=== PATIENT | male | born 1965 | race Caucasian/White ===

== ENCOUNTER 2017-02-10 17:55 | Inpatient (IN) | payer MEDICARE, OTHER ==
--- NOTE | ~2017-02-10 | EEG ---
Electroencephalogram [place] [place]. [address] NAME: REN MUNOZ : 69 STATUS : DIS IN PAT#: [id number] AGE: 51 ADM/REG DATE : 02/10/17 MR#: [id number] REPORT SERV DATE: 02/12/17 DICTATED BY: KAREN SHELTON DATE: 02/12/17 REPORT STATUS : Draft TRANSCRIBED BY: MODAnderson DATE: 02/12/17 EEG NUMBER: [id number]. INTERPRETING PHYSICIAN: Karen Shelton MD REASON FOR THE EEG: Encephalopathy and history of seizures. FINDINGS: 23 surface electrodes, 10-20 international placement was used. The patient was noted to be awake, drowsy, and asleep throughout the study. The background activity consisted of moderate to low voltage, well-organized alpha range activity of 10-11 cycles per second located in the posterior head regions. This activity attenuated well with the eye opening maneuvers. During drowsiness and light sleep, appropriate amount of increase of slower frequencies was observed. The patient was noted to snore throughout the study. Photic stimulation did not bring out additional changes or abnormalities. The patient's monitoring and evaluation advisor showed sinus rhythm, rate of approximately 72 beats per minute. No significant asymmetry of cerebral activity was noted. No paroxysmal epileptiform activity was seen during the study. IMPRESSION: THIS IS A NORMAL AWAKE, DROWSY, AND ASLEEP EEG. CLINICAL CORRELATION IS RECOMMENDED. RONNY/LISSA Karen Shelton MD / [id number] CC: Ashlyn Cook M.D.
--- NOTE | ~2017-02-10 | CN ---
Consultation Report [facility] [address] [place]. [address] NAME: REN MUNOZ : 69 STATUS : ADM IN PAT#: [id number] AGE: 51 ADM/REG DATE : 02/10/17 MR#: [id number] REPORT SERV DATE: 02/11/17 DICTATED BY: YESSICA ROSADO DATE: 02/11/17 REPORT STATUS : Draft TRANSCRIBED BY: MODL DATE: 02/11/17 NEUROLOGY CONSULTATION DATE OF CONSULTATION: 02/11/2017 REASON FOR CONSULTATION: Seizure and acute encephalopathy. HOSPITALIST: Dr. Singh Bay. HISTORY OF PRESENT ILLNESS: The patient is a 51-year-old male, who was complaining of insomnia, consequently he was started on Elavil two weeks ago. A week ago, the patient started to become confused, lethargic, and dysarthric. His family thought he was having another stroke, so they took him to [facility]. He was admitted to the hospital. Imaging, lab work, and an EEG was done. His studies came back negative for stroke or seizure activity. He was sent home. He had a recent toothache and was placed on antibiotics. The patient mentions that he has had seizures since he was approximately [age] years old. He has a strong family history for seizure. His brother, sister, and mother all have seizure activity. He states that, he has tonic-clonic seizure and has been on Keppra 2000 mg a day, which seemed to control his seizure activity. PAST MEDICAL HISTORY: Chronic systolic heart failure with an EF of 30%, atrial fibrillation currently on Pradaxa, tonic-clonic seizure, diabetes mellitus, hypertension, hyperlipidemia, bipolar disorder, anxiety, B12 and folate deficiency, history of stroke in the right basal ganglia region, and tobacco abuse. PAST SURGICAL HISTORY: Lumbar spine surgery x2 with implanted bone growth stimulator, cardiac ablation, and recurrent rectal abscess. HOME MEDICATIONS: Elavil 50 mg at bedtime, Lipitor 10 mg daily, Coreg 3.125 mg b.i.d., Celexa 40 mg daily, Pradaxa 150 mg b.i.d., Neurontin 600 mg t.i.d., Advil 600 mg b.i.d. p.r.n., NovoLog insulin 70/30 15 units b.i.d., Keppra 1000 mg b.i.d., Zestril 20 mg daily, metformin 1000 mg b.i.d., Micro-K 10 mEq daily, Aldactone 25 mg b.i.d., and Demadex 10 mg daily. ALLERGIES: NONE. SOCIAL HISTORY: The patient is . He has two children. He is disabled. He is a smoker. Occasionally, he will drink alcohol and denies any use of illicit drugs. FAMILY HISTORY: His mother is alive. She has seizure. There is no history on his father. He has a brother and sister, who also has seizure activity. Consultation Report [id number] [place]. [address] NAME: REN MUNOZ : 69 STATUS : ADM IN [facility]#: [id number] AGE: 51 ADM/REG DATE : 02/10/17 MR#: [id number] REPORT SERV DATE: 02/11/17 DICTATED BY: YESSICA ROSADO DATE: 02/11/17 REPORT STATUS : Draft TRANSCRIBED BY: LISSA DATE: 02/11/17 REVIEW OF SYSTEMS: For pertinent positives, please refer to HPI. PHYSICAL EXAMINATION: GENERAL: The patient is a 51-year-old male, who stands 6 feet tall and weighs 242 pounds. VITAL SIGNS: He is afebrile. Heart rate 78, respiration rate 19, O2 saturations on 4 L nasal cannula 95%, blood pressure 127/79. NEURO: The patient is awake. He is alert, oriented x4. Communicates appropriately. Pupils are 6 mm. PERRLA. Cranial nerves 2 through 12 are intact. He can move all extremities x4. Rhcjvy-gn-abno and ocfn-qh-ciol, no ataxia. No pronator drift. No dysmetria, tremor, or asterixis. Upper extremity strength is 5/5. Upper DTRs 2+ bilaterally. No reported sensory deficits. Lower extremity strength is 5/5. Patellar reflexes 2+ bilaterally. Downgoing toes. No reported sensory deficits. NECK: No carotid bruits, JVD, or thyromegaly. CHEST: Lung sounds clear. No cough. CARDIAC: Regular rate and rhythm. LABORATORY DATA: CBC is within normal limits. BMP shows a glucose of 241. INR is 1.3. Urinalysis negative for UTI. EEG results are pending. ABGs within normal range. Chest x- ray, borderline cardiomegaly. CT of the brain without contrast shows an old right basal ganglia infarct (lacunar, no acute changes). ASSESSMENT/PLAN: 1. Seizure disorder. The patient has tonic-clonic seizure. His last seizure was six months ago. At this point, the patient will be continued on Keppra at 1000 mg p.o. b.i.d. EEG results are still pending. 2. Acute encephalopathy, most likely due to the new addition of Elavil, which will be discontinued. He will be placed on Ativan 0.5 mg p.o. at bedtime p.r.n. insomnia. 3. History of stroke. The patient will be placed on aspirin 81 mg daily. His Lipitor will be continued. Risk factor reduction will be discussed with the patient (diabetes, hypertension, smoking cessation, hyperlipidemia). Thank you again for including us in consultation. OLE/LISSA Yessica Rosado, [facility] / [id number] CC: Singh Bay M.D. Consultation Report [address] [address] NAME: REN MUNOZ : 69 STATUS : ADM IN [facility]#: [id number] AGE: 51 ADM/REG DATE : 02/10/17 MR#: [id number] REPORT SERV DATE: 02/11/17 DICTATED BY: YESSICA ROSADO DATE: 02/11/17 REPORT STATUS : Draft TRANSCRIBED BY: LISSA DATE: 02/11/17 Christofer Luz M.D.
--- NOTE | ~2017-02-10 | HP ---
History And Physical [place] [id number] [facility] [place]. [address] NAME: REN MUNOZ : 69 STATUS : ADM IN [facility]#: [id number] AGE: 51 ADM/REG DATE : 02/10/17 MR#: [id number] REPORT SERV DATE: 02/11/17 DICTATED BY: MICHELLE WATTS DATE: 02/11/17 REPORT STATUS : Draft TRANSCRIBED BY: MODL DATE: 02/11/17 DATE OF ADMISSION: 02/10/2017 CHIEF COMPLAINT: A 51-year-old male presenting with confusion and hypoxia. HISTORY OF PRESENT ILLNESS: The patient's history was obtained through an interview with the patient, , and sister as well as review of [facility] medical records and medical records obtained from [facility]. About two weeks ago, the patient was started on a new sleeping medication, Elavil, and this may correspond to the patient's worsening condition over the last few weeks. About a week ago or more the patient began to have increasing confusion as his main symptom. He had intermittent slurring of speech, became hypersomnolent at times and even lethargic. He therefore was admitted to [facility] about a week ago, and his family simply states "we thought he was having a stroke or heart attack" because he was so ill. While hospitalized, he had a negative CT scan of the brain, negative EEG, and was thought to be stable enough to return back home. He has only continued to be confused, lethargic with again intermittent slurring of speech, but there has been no hemiparesis, no double vision, no lightheadedness or vertigo. Apparently last week he had some "terrible" chest pain that has since completely resolved, but he had a negative stress test for this. No shortness of breath. No cough. He has had a recent toothache for which he has been on antibiotics, but the toothache has completely resolved now. He has had new onset lower extremity edema recently, but it does not seem to bother him symptomatically otherwise. Apparently his diabetes has been poorly controlled recently with his blood sugars sometimes between the 300s and 500s. REVIEW OF SYSTEMS: Otherwise a 14-point review of systems was obtained and was negative. PAST MEDICAL HISTORY: 1. Systolic congestive heart failure. Ejection fraction 30% measured in January 2016. 2. Atrial fibrillation, on Pradaxa status post cardiac ablation. 3. Seizure disorder. His last seizure was about six months ago. He is on Keppra. 4. Diabetes. 5. Hypertension. 6. Elevated cholesterol. 7. Bipolar disorder with anxiety. 8. B12 and folate deficiency. History And Physical [place] [place]. [address] NAME: REN MUNOZ : 69 STATUS : ADM IN [facility]#: [id number] AGE: 51 ADM/REG DATE : 02/10/17 MR#: [id number] REPORT SERV DATE: 02/11/17 DICTATED BY: MICHELLE WATTS DATE: 02/11/17 REPORT STATUS : Draft TRANSCRIBED BY: LISSA DATE: 02/11/17 9. Right basal ganglia lacunar stroke by CT scan. PAST SURGICAL HISTORY: 1. Lumbar spine surgery x2. 2. Cardiac ablation. 3. Recurrent rectal abscesses. ALLERGIES: NO KNOWN DRUG ALLERGIES. SOCIAL HISTORY: The patient is a smoker. Drinks alcohol socially. He is . Has a 13 year-old son and 32-year-old daughter. Lives in [place], [place]. He is disabled. FAMILY HISTORY: Brother, mother, and sisters with seizure disorder. A strong family history of cancer, diabetes, and heart disease as well. CURRENT MEDICATIONS: 1. Elavil 50 mg p.o. daily. 2. Lipitor 10 mg p.o. daily. 3. Coreg 3.125 mg p.o. b.i.d. 4. Celexa 40 mg p.o. daily. 5. Pradaxa 150 mg p.o. b.i.d. 6. Neurontin 600 mg p.o. t.i.d. 7. Advil p.r.n. 8. Novolin 70/30, 15 units subcutaneous twice a day. 9. Keppra 1000 mg p.o. b.i.d. 10.Lisinopril 20 mg p.o. daily. 11.Metformin 1000 mg p.o. b.i.d. 12.Potassium 10 mEq p.o. daily. 13.Spironolactone 25 mg p.o. b.i.d. 14.Demadex 10 mg p.o. daily. PHYSICAL EXAMINATION: VITAL SIGNS: Temperature 97.5, pulse 92, blood pressure 112/76, respiratory rate 12, and O2 saturation 80% on room air, 95% on 4 L nasal cannula. GENERAL: A lethargic ill-appearing male, but in no evidence of acute distress. No respiratory distress. HEENT: Pupils equal, round, and reactive to light. No conjunctival pallor. No scleral icterus. Nares are patent. Oropharynx is clear of obstruction. Moist mucous membranes. NECK: Trachea midline. No thyromegaly. LYMPH: No cervical lymphadenopathy. No supraclavicular lymphadenopathy. RESPIRATORY: The patient has a shallow respiratory effort. No wheezes. No rales. No rhonchi. A nonlabored respiratory effort. CARDIOVASCULAR: Regular rate and rhythm. No murmurs, rubs, or gallops. The patient does have deeply pitting "doughy" lower extremity edema that is symmetrical. ABDOMEN: Soft, nontender, and nondistended. Normal bowel sounds auscultated throughout. No hepatosplenomegaly. DERMATOLOGICAL: Warm and dry extremities. No pallor. No cyanosis. History And Physical [address] [address] NAME: REN MUNOZ : 69 STATUS : ADM IN [facility]#: [id number] AGE: 51 ADM/REG DATE : 02/10/17 MR#: [id number] REPORT SERV DATE: 02/11/17 DICTATED BY: MICHELLE WATTS DATE: 02/11/17 REPORT STATUS : Draft TRANSCRIBED BY: LISSA DATE: 02/11/17 PSYCHIATRIC: Normal affect. Good mood. Alert and oriented x3. He is lethargic, but easily arousable. LABORATORY DATA: White blood cell count 8.4, hemoglobin 12, hematocrit 36, and platelets 414. Sodium 134, potassium 4.5, chloride 98, bicarb 29, BUN 15, creatinine 1.19, and glucose 230. Brain natriuretic peptide 33. Troponin negative. Lactic acid 0.9. Urinalysis negative for infection. ABG demonstrates pH 7.32, a PaCO2 of 53, a PaO2 of 62, and a bicarb of 27. STUDIES: 1. Chest x-ray by my own evaluation shows chronic interstitial lung disease changes, but no acute abnormality. 2. EKG by my own evaluation shows sinus rhythm, no major abnormalities. 3. CT scan of the brain shows a chronic appearing right basal ganglia lacunar stroke, but no acute abnormality. ASSESSMENT AND PLAN: 1. Hypoxic and hypercapnic respiratory failure. Suspect over-sedation from new prescription of Elavil with concomitant obstructive sleep apnea. We will place on nightly BiPAP for now and follow ABG. Negative brain natriuretic peptide. No wheezes. 2. Encephalopathy. Provide supportive care of respiratory status. Follow ABG. Hold new medication, Elavil. Check an MRI of the brain as the patient has previously undiagnosed "old" stroke ? 3. Seizure disorder. Recheck an EEG. Consult neurologist, Dr. Alen Fraser. 4. Uncontrolled diabetes. Increased Novolin 70/30, start aggressive sliding scale insulin. Obtain a nurses educator consult. 5. Lower extremity edema. Negative brain natriuretic peptide. Check an albumin level. Check a venous Doppler ultrasound of lower extremities. Continue Pradaxa. KPL/MODL Michelle Watts M.D. / [id number] CC: Ashlyn Cook M.D.
--- NOTE | ~2017-02-10 | DS ---
Discharge Summary [facility] [address] [place] [place]. [address] NAME: REN MUNOZ : 69 STATUS : DIS IN PAT#: [id number] AGE: 51 ADM/REG DATE : 02/10/17 MR#: [id number] REPORT SERV DATE: 02/13/17 DICTATED BY: ANNE-MARIE PONCE DATE: 02/12/17 REPORT STATUS : Draft TRANSCRIBED BY: MODL DATE: 02/12/17 ADMISSION DATE: 02/10/2017 DISCHARGE DATE: 02/12/2017 This is a 51-year-old male who comes in for confusion. FINAL DIAGNOSES: 1. Acute hypoxic hypercapnic respiratory failure, resolved. 2. Obstructive sleep apnea. 3. Acute encephalopathy, likely secondary to Elavil. 4. History of right basal ganglia cerebrovascular accident. 5. Seizure disorder. 6. Uncontrolled diabetes, improved. 7. Chronic systolic congestive heart failure with ejection fraction of 30%. 8. Hypertension. 9. Atrial fibrillation with history of ablation. 10.Bipolar and anxiety. 11.Tobacco abuse. 12.Status post hyponatremia. DIAGNOSTIC EXAMS: CAT scan of the brain without showing no acute intracranial pathology, 6 mm hypodensity right basal ganglia, caudate nucleus consistent with old lacunar infarct. Chest x-ray, borderline cardiomegaly, no acute cardiopulmonary abnormality. Ultrasound of the lower extremity is negative. Chest x-ray shows increased pulmonary markings, cardiomegaly. HOSPITAL COURSE: Please refer to the H and P done by Dr. Elizondo dated on 02/10/2017. Briefly, this is a 51-year-old male, who comes in with confusion and hypoxia. The patient has a history of diabetes, seizures with the last one about six months ago, chronic systolic congestive heart failure, atrial fibrillation, who was started on Elavil two weeks ago. The patient then having increasing confusion, intermittent slurring of speech. The patient was then brought to [facility] about a week ago and they did a CAT scan, EEG and it was negative and he was sent home. But he continued to be confused, lethargic, with intermittent slurring of speech. The patient was then brought here and the above tests were done. The patient was taken off the Elavil, but because of his acute hypoxic hypercapnic respiratory failure, he was placed on BiPAP. The patient improved, and on discharge, he was saturating 92% on room air. His mental status is back to his normal. There is no slurring of speech and he even goes out of the floor without any problems and come back without any symptoms. The patient was seen by Neuro and it does not seem that the patient had a CVA, so if they agree, we will be discharging the patient with the above diagnosis. He will follow up with his PCP, Dr. Christofer Luz, and I would advise being careful with sedating medications and an outpatient sleep study. He will be going home with the same home medications, which are Lipitor 10 mg a day, Coreg 3.125 mg twice a day, Celexa 40 mg a day, Pradaxa 150 mg twice a day, gabapentin 600 mg three times a day, Keppra 1000 mg twice a day, Novolin 70/30 increased to 30 units twice a day, Zestril 20 mg a day, Aldactone 25 mg twice a day, Demadex Discharge Summary [address] [address] NAME: REN MUNOZ : 69 STATUS : DIS IN PAT#: [id number] AGE: 51 ADM/REG DATE : 02/10/17 MR#: [id number] REPORT SERV DATE: 02/13/17 DICTATED BY: ANNE-MARIE PONCE. DATE: 02/12/17 REPORT STATUS : Draft TRANSCRIBED BY: LISSA DATE: 02/12/17 10 mg a day, metformin 1000 mg twice a day, potassium 10 mEq a day, Advil p.r.n. This was discussed with the patient. TIME SPENT: 35 minutes. JUDIE/LISSA Anne-Marie Ponce M.D. / [id number] CC: Ashlyn Cook M.D.
[2017-02-10 18:29] LABS: BASOPHILS 0.7 %; BASOPHILS ABSOLUTE 0.06 10/3/uL (0.0-0.16); EOSINOPHILS 5.3 %; EOSINOPHILS ABSOLUTE 0.44 10/3/uL (0.0-0.53); ER CBC TAT 0 Hrs 14 Mins; HEMATOCRIT 35.9 % (40.0-51.0); HEMOGLOBIN 12.2 g/dL (13.6-17.8); IMMATURE GRANULOCYTES 0.2 %; IMMATURE GRANULOCYTES ABSOLUTE 0.02 10/3/uL (0.0-0.11); LYMPHOCYTES 34.1 %; LYMPHOCYTES ABSOLUTE 2.85 10/3/uL (0.67-4.30); MEAN CORPUSCULAR HEMOGLOB 30.3 pg (26.0-34.0); MEAN CORPUSCULAR VOLUME 89.3 fL (80-100); MEAN PLATELET VOLUME 9.9 fL (9.2-13.0); MONOCYTES 9.6 %; NEUTROPHILS 50.1 %; PLATELET COUNT 414 10/3/uL (150-400); RBC DISTRIBUTION WIDTH 13.4 % (12.0-16.0); RED CELL COUNT 4.02 10/6/uL (4.7-6.1); WHITE BLOOD CELLS 8.4 10/3/uL (4.5-10.5)
[2017-02-10 18:31] LABS: MANUAL DIFF NO %
[2017-02-10 18:35] LABS: ALLENS TEST Pos; CARBOXYHEMOGLOBIN 4.1 % (0-3); HCO3 (ACTUAL BICARBONATE) 26.9 MEQ/L (23-27); INSTRUMENT SERIAL # 8087; METHEMOGLOBIN 0.1 % (0-3); O2 CONTENT 15.8 VOL% (18-24); OPERATOR ID 14335; PCO2 (CO2 TENSION) 53 MMHG (35-45); PO2 (O2 TENSION) 62 MMHG (79-93); SAMPLE Arterial; pH 7.32 (7.37-7.43)
[2017-02-10 18:47] LABS: A/G RATIO 0.9 (0.7-1.9); ALBUMIN 3.3 G/DL (3.5-5.0); ALKALINE PHOSPHATASE 101 U/L (45-117); BUN (BLOOD UREA NITROGEN) 15 MG/DL (6-23); CALCIUM, SERUM 8.7 MG/DL (8.5-10.4); CHLORIDE, SERUM 98 MMOL/L (96-112); CO2 (CARBON DIOXIDE) 29 MMOL/L (24-34); CREATININE 1.19 MG/DL (0.70-1.30); GFR AFRICAN AMERICAN 83 ML/MIN (>=60); GFR NON AFRICAN AMERICAN 71 ML/MIN (>=60); GLOBULIN 3.6 G/DL (2.5-4.1); GLUCOSE, SERUM 230 MG/DL (60-99); POTASSIUM, SERUM 4.5 MMOL/L (3.5-5.3); SALICYLATE 2.7 MG/DL (-); SGOT(AST) 11 U/L (5-40); SGPT(ALT) 20 U/L (5-65); SODIUM, SERUM 134 MMOL/L (135-148); TOTAL BILIRUBIN 0.3 MG/DL (0-1.2); TOTAL PROTEIN 6.9 G/DL (6.0-8.5); TROPONIN I <0.02 NG/ML (<0.05)
[2017-02-10 18:48] LABS: ACETAMINOPHEN LEVEL (TYLENOL) < 2.0 MCG/ML (10.0-20.0); ALCOHOL < 3 MG/DL (0)
[2017-02-10] MEDS ORDERED: CELEXA40 MG PO (19:11)
[2017-02-10] MEDS ORDERED: PRADAXA150 MG PO (19:11)
[2017-02-10] MEDS ORDERED: KEPPRA1000 MG PO (19:11)
[2017-02-10] MEDS ORDERED: GLUCOPHAGE1000 MG PO (19:11)
[2017-02-10] MEDS ORDERED: COREG3 PO (19:12)
[2017-02-10] MEDS ORDERED: LIPITOR10 PO (19:12)
[2017-02-10] MEDS ORDERED: NEUR600 PO (19:12)
[2017-02-10] MEDS ORDERED: INSNOV7030 SC (19:12)
[2017-02-10] MEDS ORDERED: AMIT50 PO (19:12)
[2017-02-10] MEDS ORDERED: MICRO-K10 MEQ PO (19:13)
[2017-02-10] MEDS ORDERED: DEMA10T PO (19:13)
[2017-02-10] MEDS ORDERED: SPIRO25 PO (19:13)
[2017-02-10] MEDS ORDERED: ADVIL PO (19:13)
[2017-02-10] MEDS ORDERED: ZESTRIL20 MG PO (19:13)
[2017-02-10 19:15] LABS: LACTATE 0.9 MMOL/L (0.3-2.4)
[2017-02-10 21:10] LABS: ASCORBIC ACID (UR NOT ORDER) NEG (NEG); BILIRUBIN, URINE NEGATIVE (NEG); ER URINALYSIS TAT 0 Hrs 07 Mins; KETONE, URINE NEGATIVE (NEG); LEUKOCYTE ESTERASE(NOT OR NEG (NEG); NITRITE (URINE) NEG (NEG); WBC (NOT ORDERED) (RFLEX) < 1 (0-5)
[2017-02-11 04:28] LABS: ALLENS TEST Pos; BE (BASE EXCESS) -1.4 MEQ/L (0 +/- 2.5); BIPAP 16/6 cm.H2O; CARBOXYHEMOGLOBIN 1.6 % (0-3); HCO3 (ACTUAL BICARBONATE) 23.7 MEQ/L (23-27); HEMOBLOGIN CONTENT 12.9 G/DL (14-18); INSTRUMENT SERIAL # 8083; METHEMOGLOBIN 0.1 % (0-3); O2 CONTENT 17.4 VOL% (18-24); OPERATOR ID 19993; PCO2 (CO2 TENSION) 41 MMHG (35-45); PO2 (O2 TENSION) 89 MMHG (79-93); SAMPLE Arterial; pH 7.38 (7.37-7.43)
[2017-02-11 06:29] LABS: BASOPHILS 0.8 %; BASOPHILS ABSOLUTE 0.07 10/3/uL (0.0-0.16); EOSINOPHILS 5.1 %; EOSINOPHILS ABSOLUTE 0.45 10/3/uL (0.0-0.53); HEMATOCRIT 36.7 % (40.0-51.0); HEMOGLOBIN 12.2 g/dL (13.6-17.8); IMMATURE GRANULOCYTES 0.3 %; IMMATURE GRANULOCYTES ABSOLUTE 0.03 10/3/uL (0.0-0.11); LYMPHOCYTES 24.1 %; LYMPHOCYTES ABSOLUTE 2.11 10/3/uL (0.67-4.30); MANUAL DIFF NO %; MEAN CORPUS HGB CONC 33.2 g/dL (32.0-36.0); MEAN CORPUSCULAR VOLUME 90.2 fL (80-100); MEAN PLATELET VOLUME 9.5 fL (9.2-13.0); MONOCYTES 9.4 %; MONOCYTES ABSOLUTE 0.82 10/3/uL (0.21-1.20); NEUTROPHILS 60.3 %; NEUTROPHILS ABSOLUTE 5.29 10/3/uL (2.02-8.40); PLATELET COUNT 350 10/3/uL (150-400); RBC DISTRIBUTION WIDTH 13.2 % (12.0-16.0); RED CELL COUNT 4.07 10/6/uL (4.7-6.1); WHITE BLOOD CELLS 8.8 10/3/uL (4.5-10.5)
[2017-02-11 06:34] LABS: INTERNATIONAL NORMAL RATI 1.3 UNITS (-)
[2017-02-11 06:35] LABS: PARTIAL THROMBO TIME 45.5 SEC (22.5-37.2)
[2017-02-11 06:56] LABS: B NATRIURETIC PEPTIDE (BNP) 31.7 PG/ML (< 100.0)
[2017-02-11 07:04] LABS: A/G RATIO 0.9 (0.7-1.9); ALKALINE PHOSPHATASE 93 U/L (45-117); BUN (BLOOD UREA NITROGEN) 12 MG/DL (6-23); CALCIUM, SERUM 8.9 MG/DL (8.5-10.4); CHLORIDE, SERUM 103 MMOL/L (96-112); CO2 (CARBON DIOXIDE) 26 MMOL/L (24-34); CREATININE 0.95 MG/DL (0.70-1.30); GFR AFRICAN AMERICAN 109 ML/MIN (>=60); GFR NON AFRICAN AMERICAN 94 ML/MIN (>=60); GLOBULIN 3.4 G/DL (2.5-4.1); GLUCOSE, SERUM 241 MG/DL (60-99); POTASSIUM, SERUM 4.2 MMOL/L (3.5-5.3); SGOT(AST) 11 U/L (5-40); SGPT(ALT) 19 U/L (5-65); SODIUM, SERUM 136 MMOL/L (135-148); TOTAL BILIRUBIN 0.3 MG/DL (0-1.2); TOTAL PROTEIN 6.4 G/DL (6.0-8.5); TROPONIN I <0.02 NG/ML (<0.05)
[2017-02-11 11:29] LABS: GLYCOHEMOGLOBIN (HbA1c) 10.8 % (4.7-6.1)
[2017-02-11 14:42] LABS: CHOL/HDL RATIO(NOT ORDER) 5.3 (0-5); CHOLESTEROL 159 MG/DL (< 200); CPK 31 U/L (0-200); FREE T4 0.75 NG/DL (0.76-1.46); HDL CHOLESTEROL 30 MG/DL (> 39); LDL CHOLESTEROL 51 MG/DL (< 130); NON-HDL CHOLESTEROL 129 MG/DL (< 160); TRIGLYCERIDE 394 MG/DL (< 150)
[2017-02-11 14:44] LABS: DIRECT BILIRUBIN < 0.1 MG/DL (0.0-0.4); FOLATE 8.7 NG/ML (>5.2); INDIRECT BILIRUBIN(NOT ORDER) 0.2 MG/DL (0.1-0.9)
[2017-02-11 20:02] LABS: ACETAMINOPHEN LEVEL (TYLENOL) 2.6 MCG/ML (10.0-20.0); SALICYLATE 2.9 MG/DL (-)
[2017-02-11 20:15] LABS: ALCOHOL < 10 MG/DL (0)
[2017-02-12] MEDS ORDERED: INSNOV7030 SC (09:46)
== END 2017-02-12 10:21 | disposition home or self-care (01) | DRG 189 ==
LOC: ER 17:55 → 2SO 21:38
PROVIDERS: Hospitalist; Internal Medicine; Specialist
PROC: 5A09357 Assistance with Respiratory Ventilation, Less than 24 Consecutive Hours, Continuous Positive Airway Pressure (ICD-10-PCS; principal; 2017-02-10)
DX: J96.92 Respiratory failure, unspecified with hypercapnia (principal); G92 Toxic encephalopathy; E11.65 Type 2 diabetes mellitus with hyperglycemia; I50.22 Chronic systolic (congestive) heart failure; I11.0 Hypertensive heart disease with heart failure; Z99.81 Dependence on supplemental oxygen; G40.909 Epilepsy, unspecified, not intractable, without status epilepticus; I48.0 Paroxysmal atrial fibrillation; E53.8 Deficiency of other specified B group vitamins; R60.9 Edema, unspecified; E78.00 Pure hypercholesterolemia, unspecified; F41.9 Anxiety disorder, unspecified; F31.9 Bipolar disorder, unspecified; F17.210 Nicotine dependence, cigarettes, uncomplicated; Z86.73 Personal history of transient ischemic attack (TIA), and cerebral infarction without residual deficits; Z98.890 Other specified postprocedural states; Z80.9 Family history of malignant neoplasm, unspecified; Z83.3 Family history of diabetes mellitus; Z82.49 Family history of ischemic heart disease and other diseases of the circulatory system; G47.33 Obstructive sleep apnea (adult) (pediatric); J96.91 Respiratory failure, unspecified with hypoxia; T43.015A Adverse effect of tricyclic antidepressants, initial encounter
CPT/HCPCS: 36600; 70450; 71010; 80053; 80061; 80307; 81001; 82248; 82533; 82550; 82607; 82746; 82805; 82962; 83036; 83605; 83735; 83880; 84439; 84443; 84484; 85025; 85610; 85730; 87040; 93005; 93970; 94660; 95819; 99285; A9270-GY; J1953